=== PATIENT | male | born 1935 | race Caucasian/White ===

== ENCOUNTER 2017-04-23 20:08 | Emergency (ER) | payer OTHER, MEDICARE ==
[~2017-04-23] VITALS: Ht 193 cm; Wt 120.0 kg
[2017-04-23 20:52] VITALS: BP 203/96; PULSE 72; RESP 18; TEMP 97.2; O2SAT 93
[2017-04-24] MEDS ORDERED: ENOX40IN SQ (03:29)
[2017-04-24] MEDS ORDERED: TIZA4CAP3 PO (03:29)
[2017-04-24] MEDS ORDERED: TIOT1AER2 INH (03:29)
[2017-04-24] MEDS ORDERED: LYRI50CA PO (03:29)
[2017-04-24] MEDS ORDERED: HYDR-3366 PO (03:29)
[2017-04-24] MEDS ORDERED: METF1000 PO (03:29)
[2017-04-24] MEDS ORDERED: THEO300T30 PO (03:29)
[2017-04-24] MEDS ORDERED: PRAV80TA2 PO (03:29)
[2017-04-24] MEDS ORDERED: DIAZ5TAB PO (03:29)
[2017-04-24] MEDS ORDERED: CITA20TA4 PO (03:29)
[2017-04-24] MEDS ORDERED: VERA1TAB17 PO (03:29)
[2017-04-24] MEDS ORDERED: OMEP20TA PO (03:29)
[2017-04-24] MEDS ORDERED: POTA10CA PO (03:29)
[2017-04-24] MEDS ORDERED: TETANUS/DIPHTHERIA TOXOID ADULT 0.5 ML VIAL IM ONE (04:00)
[2017-04-24] MEDS ORDERED: AMOXICILLIN/CLAVULANATE K 875 MG TAB PO ONE (04:00)
[2017-04-24] MEDS ORDERED: AUGM875T3 PO (04:44)
--- NOTE | 2017-04-24 04:46 | RADRPT ---
EXAM DATE/TIME: 04/24/2017 04:04 [place] COMPARISON: No previous studies available for comparison. INDICATIONS : Dog bite right hand. MEDICAL HISTORY : None. SURGICAL HISTORY : None. ENCOUNTER: Initial ACUITY: 1 day PAIN SCORE: 5/10 LOCATION: Right hand. FINDINGS: Three view examination of the right hand demonstrates no soft tissue swelling, dislocation, or fractu re. The carpal bones appear intact. The interphalangeal and metacarpophalangeal joints are intact. Bony mineralization is normal. CONCLUSION: 1. No acute findings. 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 Jeremie King MD on April 24, 2017 at 4:44 Board Certified Radiologist. This report was verified electronically.
--- NOTE | 2017-04-24 04:47 | PD ---
HPI . dog bite Chief Complaint: Bite or Sting Time Seen by Provider: 03:56 Travel History International Travel<30 days: No Contact w/Intl Traveler<30days: No Traveled to known affect area: No History of Present Illness HPI 81-year-old male presents to the emergency department with dog bite to the right hand after turning a separate his dog and his daughter's dog from a fight just prior to arrival to the emergency department. Dogs are current on her vaccines. Patient does not know his tetanus status. Patient is a diabetic. Patient is right-handed. Patient denies any hand or digit numbness tingling or weakness or decreased range of motion. Patient denies other injury. Patient rates hand pain 8/10 intensity. PFSH Past Medical History Arthritis: Yes Blood Disorders: No Anxiety: No Depression: No Heart Rhythm Problems: No Cancer: No Cardiovascular Problems: Yes (CAD) High Cholesterol: Yes Chest Pain: No Congestive Heart Failure: No COPD: Yes (SMOKER FOR 50 YRS) Cerebrovascular Accident: No Diabetes: Yes Patient Takes Glucophage: Yes Diminished Hearing: No Endocrine: No Genitourinary: No Headaches: Yes Hypertension: Yes Immune Disorder: No Musculoskeletal: No Neurologic: No Psychiatric: No Reproductive: No Respiratory: Yes (copd) Myocardial Infarction: No Seizures: No Tetanus Vaccination: > 5 Years Influenza Vaccination: Yes ?: Not Past Surgical History Abdominal Surgery: Yes (INGUINAL HERNIA REPAIR) Arteriovenous Shunt: No Cardiac Surgery: No Ear Surgery: No Endocrine Surgery: No Eye Surgery: Yes (R CATATRACT WITH LENS IM-PLANT) Genitourinary Surgery: No Gynecologic Surgery: No Insulin Pump: No Joint Replacement: Yes Oral Surgery: No Pacemaker: No Thoracic Surgery: No Other Surgery: Yes Social History Alcohol Use: No Tobacco Use: No Substance Use: No Allergies-Medications (Allergen,Severity, Reaction): Coded Allergies: clarithromycin (Unverified Allergy, Severe, 04/24/17) Reported Meds & Prescriptions Reported Meds & Active Scripts Active Augmentin (Amoxicillin-Clavulanate) 875-125 Mg Tab 1 Tab PO BID 10 Days Reported Spiriva Respimat Inh (Tiotropium Inh) 1.25 Mcg/Act Aero 2 Puff INH DAILY 1.25 mcg = 1 inhalation Theophylline ER 12 HR (Theophylline) 300 Mg Tab 300 Mg PO Q12H Pravastatin 80 Mg Tab 80 Mg PO DAILY Marinette (Hydrocodone-Acetaminophen) 10-325 Mg Tab 1 Tab PO Q6H PRN Metformin (Metformin HCl) 1,000 Mg Tab 1,000 Mg PO BIDPC With meals Citalopram (Citalopram Hydrobromide) 20 Mg Tab 20 Mg PO DAILY Verapamil ER 24 HR (Verapamil HCl) 240 Mg Tab 120 Mg PO HS Potassium Chloride ER (Potassium Chloride) 10 Meq Cap 10 Meq PO DAILY Lyrica (Pregabalin) 50 Mg Cap 50 Mg PO TID Tizanidine (Tizanidine HCl) 4 Mg Cap 4 Mg PO TID Omeprazole 20 Mg Tab 20 Mg PO DAILY Diazepam 5 Mg Tab 5 Mg PO BID PRN Enoxaparin Inj (Enoxaparin Sodium) 40 Mg/0.4 Ml Syr 40 Mg SQ DAILY Review of Systems Except as stated in HPI: all other systems reviewed are Neg General / Constitutional: No: Fever, Chills HENT: No: Congestion Cardiovascular: No: Chest Pain or Discomfort Respiratory: No: Shortness of Breath Gastrointestinal: No: Abdominal Pain Genitourinary: No: Flank Pain Musculoskeletal: Positive: Pain (hand) Skin: Positive Other (bite hand), No Rash Neurologic: No: Weakness, Dizziness Psychiatric: No: Anxiety Endocrine: No: Heat Intolerance Hematologic/Lymphatic: No: Easy Bruising Physical Exam Narrative GENERAL: Well-developed well-nourished male in no acute distress no respiratory distress SKIN: Warm and dry. HEAD: Normocephalic. EYES: No scleral icterus. No injection or drainage. NECK: Supple, trachea midline. No JVD or lymphadenopathy. CARDIOVASCULAR: Regular rate and rhythm without murmurs, gallops, or rubs. RESPIRATORY: Breath sounds equal bilaterally. No accessory muscle use. GASTROINTESTINAL: Abdomen soft, non-tender, nondistended. MUSCULOSKELETAL: No cyanosis, or edema. Attention right hand dorsal aspect ovoid interrupted flap laceration injury, scant amount of oozing blood, no visualized foreign body tendon injury distally extension and flexion of digits intact with brisk capillary refill less than 2 seconds and thumb apposition intact no deformity noted. BACK: Nontender without obvious deformity. No CVA tenderness. Data Data Last Documented VS Vital Signs Date Time Temp Pulse Resp B/P (MAP) Pulse Ox O2 Delivery O2 Flow Rate FiO2 04/23/17 20:52 97.2 72 18 203/96 (131) 93 Orders Orders Amoxicil-Clavulanate (Augmentin) (04/24/17 04:00) Tetanus/Diphtheria Tox Adult (Tetanus/Di (04/24/17 04:00) Wound Care (04/24/17 03:57) Hand, Complete ([id number]) (04/24/17 ) Wound Care (04/24/17 03:57) MDM Medical Decision Making Medical Screen Exam Complete: Yes Emergency Medical Condition: Yes Medical Record Reviewed: Yes Interpretation(s) Hand xr: FINDINGS: Three view examination of the right hand demonstrates no soft tissue swelling, dislocation, or fracture. The carpal bones appear intact. The interphalangeal and metacarpophalangeal joints are intact. Bony mineralization is normal. CONCLUSION: 1. No acute findings. 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 Jeremie King MD on April 24, 2017 at 4:44 Board Certified Radiologist. This report was verified electronically. Differential Diagnosis Dog bite fracture retained foreign body neurovascular tendon injury Narrative Course Wound site was cleansed imaging study was ordered tetanus status updated first dose of antibiotic administered X-ray shows no evidence of acute bony injury or retained radiopaque foreign body Wound was closed with Steri-Strips and bulky dressing applied; patient provided a prescription for Augmentin and encouraged follow-up with primary care provider and hand surgeon as needed; 2 day wound check. Patient stable for outpatient management Patient given first dose of antibiotic and tetanus status updated Diagnosis Primary Impression: Animal bite of hand Qualified Codes: S61.451A - Open bite of right hand, initial encounter Referrals: Hand Surgeon as needed Primary Care Physician 2 days Patient Instructions: General Instructions Additional Instructions: Keep site clean and dry Complete course of antibiotic as prescribed Wound check at 2 days; follow-up with your primary care provider; call office to schedule appointment Follow up with hand surgeon for any concerns Return to the emergency department for pain fever redness drainage or any worsening of condition May take acetaminophen/Tylenol as needed for fever 100.4F or greater Med/Other Pt SpecificInfo: Prescription(s) given Scripts Amoxicillin-Clavulanate (Augmentin) 875-125 Mg Tab 1 TAB PO BID for Infection for 10 Days, TAB 0 Refills Prov: Fernanda Torres MD 04/24/17 Disposition: 01 DISCHARGE HOME Condition: Stable Fernanda Torres MD Apr 24, 2017 04:47
== END 2017-04-24 05:12 | disposition home or self-care (01) ==
LOC: PHED 20:08 → PHEFT 04-24 05:12
DX: S61.451A Open bite of right hand, initial encounter (principal); W54.0XXA Bitten by dog, initial encounter; Z23 Encounter for immunization
CPT/HCPCS: 73130; 90471; 90714